=== PATIENT | female | born 1995 | race Caucasian/White ===

== ENCOUNTER 2023-06-10 14:55 | Outpatient (AMB) | payer MEDICAID, SELFPAY ==
--- NOTE | 2023-06-10 14:57 | MHC.OFFVIS ---
Intake Vital Signs 06/10/23 14:58 Height 4 ft 9.87 in Weight 147 lb 4.301 oz BMI 30.9 BP 102/78 Blood Pressure Location Rt brachial Position Sitting Pulse 94 Pulse Source Pulse Oximeter Intake Visit Reasons: PSA Intake Note: New pt presents today for consult referred by PCP Paty Bishop. Patient has been diagnosed with psoriatic arthritis a year ago and is here to establish care and discuss treatment. C/o of pain in ankles, knees, and wrists. Patient reports finger will go numb in shower and has been noticing psoriasis patches on arms and occasionally on upper thighs and flanks. Pain started approx around 7 years old. Patient stated around she was officially diagnosed. Has tried Meloxicam 7.5 mg for 3-4 months. 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 Patient states that she was diagnosed with psoriasis when she had plenty of dandruff on her scalp as well as rashes on her arms. This was a few years ago. She was diagnosed with psoriasis by her PCP. She did see a in service education teacher for acne. According to patient. Diagnosis was not confirmed by a in service education teacher and she never received any specific treatment aimed towards psoriasis. She states that since age 7 she would have multiple joint aches and pains. She was never given a diagnosis. She never had any joint arthrocentesis or any specific treatment. She stated that around age [age] she was told that there was some abnormality in her blood work and was diagnosed with psoriatic arthritis. She took meloxicam 7.5 mg daily for 3-4 months without relief. Currently patient states that she gets pain in her hands, ankles, back, neck. States that occasionally her fingers would tingle and go numb. Mentions that when her fiance squeezes her hands they hurt. She mentions that her father had psoriatic arthritis. 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 Female Reproductive History Menstrual Total pregnancies: 1 Ab induced: 1 Review of Systems Const Reports fatigue ENT Reports dizziness and Reports tinnitus GI Reports heartburn Musc Reports back pain, Reports arthralgias, Reports joint swelling, Reports stiffness and Reports tingling Skin/Breast Reports unusual bruising Neuro Reports dizziness and Reports tingling Psych Reports anxiety Endo Reports fatigue Physical Exam Vital Signs: Last Vital Signs Pulse 94 06/10/23 14:58 BP 102/78 06/10/23 14:58 BMI result Body Mass Index 30.9 Const General: cooperative, healthy appearing and comfortable Nutritional Appearance: overweight Orientation/consciousness: patient oriented x3 Limitations: no limitations HEENT Head: Yes normocephalic and Yes atraumatic Mouth: moist mucous membranes Resp Effort & Inspection: normal respiratory effort and able to speak in complete sentences Auscultation: clear to auscultation bilaterally Cardio Rate: regular rate Rhythm: regular rhythm GI Inspection: No distended Palpation (GI): Soft to palpation and nontender Skin General skin exam: no rashes or lesions noted Neuro General: patient oriented x3 Extrem Other: No active synovitis Right 5th MCP tenderness without swelling Few fibromyalgia tender points Equivocal DEVENDRA test bilaterally Curt test 10-15.5 cm Normal lateral flexion test Normal range of motion of her neck Normal nailfold capillaroscopy Tenderness upon palpation of both lateral malleoli Assessment & Plan Assessment & Plan (1) Polyarthralgia: Code(s): M25.50 - Pain in unspecified joint Plan: This is a 27-year-old female who presents for evaluation of years of diffuse joint pain. Father had psoriatic arthritis. Will order comprehensive serology to screen for underlying autoimmune rheumatic disease. Check x-rays of involved joints Plan I spent 48 minutes reviewing patient's chart, evaluating patient, ordering diagnostic workup, counseling patient and documenting in the chart Orders: Orders Complete Blood Count Auto Diff Today M25.50 - Pain in unspecified joint C Reactive Protein Today M25.50 - Pain in unspecified joint Cyclic Citrullinated Peptide Today M25.50 - Pain in unspecified joint Anti DNA DS Antibody Today M25.50 - Pain in unspecified joint Sjogren's Antibodies Today M25.50 - Pain in unspecified joint XR sacroiliac joint min 3V Today M25.50 - Pain in unspecified joint XR ankle LT min 3V Today M25.50 - Pain in unspecified joint XR lumbar spine 4V min Today M25.50 - Pain in unspecified joint Comprehensive Met. Panel Today M25.50 - Pain in unspecified joint Erythrocyte Sedimentation Rate Today M25.50 - Pain in unspecified joint Hepatitis A,B,C Profile Today Z11.59 - Encounter for screening for other viral diseases Immunofixation Pnl, Serum Today M25.50 - Pain in unspecified joint Protein Electrophoresis, Serum Today M25.50 - Pain in unspecified joint Rheumatoid Factor Today M25.50 - Pain in unspecified joint GAVINO Reflex Titer and Pattern Today M25.50 - Pain in unspecified joint Anti Extractable Nuclear Ag Today M25.50 - Pain in unspecified joint Complement C3 Today M25.50 - Pain in unspecified joint Complement C4 Today M25.50 - Pain in unspecified joint Protein Creatinine Ratio, Ur Today M25.50 - Pain in unspecified joint UA w Microscopic Today M25.50 - Pain in unspecified joint XR hand wrist LT Today M25.50 - Pain in unspecified joint XR hand wrist RT Today M25.50 - Pain in unspecified joint XR ankle RT min 3V Today M25.50 - Pain in unspecified joint XR foot LT min 3V Today M25.50 - Pain in unspecified joint XR foot RT min 3V Today M25.50 - Pain in unspecified joint XR cervical spine 4V Today M25.50 - Pain in unspecified joint Coding Level of Care Code New Pt Level 4 (74124) Diagnoses Polyarthralgia M25.50
[2023-06-10 14:58] VITALS: BP 102/78; PULSE 94; BMI 30.9
== END 2023-06-10 15:39 | disposition home or self-care (01) ==
PROVIDERS: PCP General Practice; Referring Provider General Practice; Visit Provider Student in an Organized Health Care Education/Training Program
DX: M25.50 Pain in unspecified joint (principal)
CPT/HCPCS: 99204

== ENCOUNTER → 2023-06-10 14:55 | Outpatient (BNVA) | payer MEDICAID, SELFPAY | PROVIDERS: Visit Provider Student in an Organized Health Care Education/Training Program | DX: M25.50 Pain in unspecified joint (principal) | CPT/HCPCS: 99202 ==

== ENCOUNTER 2023-06-12 15:07 | Outpatient (REF) | payer MEDICAID, SELFPAY ==
--- NOTE | ~2023-06-12 | XR_ITS ---
EXAMINATION: XR BILATERAL ANKLES XR BILATERAL FEET CLINICAL INFORMATION: Pain in unspecified joint. COMPARISON: None available. TECHNIQUE: 2 views each of bilateral ankles. 3 views each of bilateral feet. FINDINGS: Left Ankle: Alignment preserved. Mild soft tissue swelling. No displaced fracture. Left Foot: Mild degenerative changes in the first metatarsophalangeal joint with joint space narrowing and hypertrophic change. Alignment preserved. Tiny soft tissue calcification along the medial proximal aspect of the distal tuft of the great toe. Right Ankle: Tiny plantar calcaneal spur. Alignment is preserved. No displaced fracture. Right Foot: Mild degenerative changes in the first metatarsophalangeal joint with joint space narrowing and hypertrophic change. Alignment preserved. Tiny soft tissue calcification along the medial proximal aspect of the distal tuft of the great toe. XR/XR foot RT min 3V IMPRESSION: 1. Tiny right plantar calcaneal spur. 2. Mild degenerative changes in the bilateral first metatarsophalangeal joints. 3. Tiny soft tissue calcifications in the bilateral great toes. Recommend follow-up imaging in 10-14 days if fracture is suspected.
--- NOTE | ~2023-06-12 | XR_ITS ---
EXAMINATION: XR LUMBAR SPINE XR SACROILIAC JOINTS XR BILATERAL HANDS/WRISTS XR CERVICAL SPINE CLINICAL INFORMATION: Pain in joints. COMPARISON: None available. TECHNIQUE: 3 views of the cervical spine. 5 views of the lumbar spine. 3 views of the bilateral sacroiliac joints. 4 views each of the bilateral hands. FINDINGS: CERVICAL SPINE: Straightening of the normal cervical lordosis. Minimal anterolisthesis of C3 on C4. Mild multilevel cervical spondylosis. Cervical disc space heights are preserved. LUMBAR SPINE: Lumbar vertebral body heights are preserved. Mild multilevel lumbar spondylosis. Facet arthritis at L5-S1. Mild degenerative changes in the imaged lower thoracic spine. BILATERAL SACROILIAC JOINTS: Mild degenerative changes in the bilateral sacroiliac joints with hypertrophic change. RIGHT HAND: The bone mineralization is normal. Joint spaces are preserved. Alignment is maintained. LEFT HAND: Bone mineralization is normal. Alignment is preserved. Joint spaces are maintained. XR/XR cervical spine 4V IMPRESSION: 1. Mild degenerative changes in the cervical spine. 2. Mild multilevel lumbar spondylosis. 3. Mild degenerative changes in the bilateral sacroiliac joints. 4. Unremarkable bilateral hands. Recommend follow-up imaging in 10-14 days if fracture is suspected.
--- NOTE | ~2023-06-12 | XR_ITS ---
EXAMINATION: XR BILATERAL ANKLES XR BILATERAL FEET CLINICAL INFORMATION: Pain in unspecified joint. COMPARISON: None available. TECHNIQUE: 2 views each of bilateral ankles. 3 views each of bilateral feet. FINDINGS: Left Ankle: Alignment preserved. Mild soft tissue swelling. No displaced fracture. Left Foot: Mild degenerative changes in the first metatarsophalangeal joint with joint space narrowing and hypertrophic change. Alignment preserved. Tiny soft tissue calcification along the medial proximal aspect of the distal tuft of the great toe. Right Ankle: Tiny plantar calcaneal spur. Alignment is preserved. No displaced fracture. Right Foot: Mild degenerative changes in the first metatarsophalangeal joint with joint space narrowing and hypertrophic change. Alignment preserved. Tiny soft tissue calcification along the medial proximal aspect of the distal tuft of the great toe. XR/XR ankle RT min 3V IMPRESSION: 1. Tiny right plantar calcaneal spur. 2. Mild degenerative changes in the bilateral first metatarsophalangeal joints. 3. Tiny soft tissue calcifications in the bilateral great toes. Recommend follow-up imaging in 10-14 days if fracture is suspected.
--- NOTE | ~2023-06-12 | XR_ITS ---
EXAMINATION: XR LUMBAR SPINE XR SACROILIAC JOINTS XR BILATERAL HANDS/WRISTS XR CERVICAL SPINE CLINICAL INFORMATION: Pain in joints. COMPARISON: None available. TECHNIQUE: 3 views of the cervical spine. 5 views of the lumbar spine. 3 views of the bilateral sacroiliac joints. 4 views each of the bilateral hands. FINDINGS: CERVICAL SPINE: Straightening of the normal cervical lordosis. Minimal anterolisthesis of C3 on C4. Mild multilevel cervical spondylosis. Cervical disc space heights are preserved. LUMBAR SPINE: Lumbar vertebral body heights are preserved. Mild multilevel lumbar spondylosis. Facet arthritis at L5-S1. Mild degenerative changes in the imaged lower thoracic spine. BILATERAL SACROILIAC JOINTS: Mild degenerative changes in the bilateral sacroiliac joints with hypertrophic change. RIGHT HAND: The bone mineralization is normal. Joint spaces are preserved. Alignment is maintained. LEFT HAND: Bone mineralization is normal. Alignment is preserved. Joint spaces are maintained. XR/XR hand wrist RT IMPRESSION: 1. Mild degenerative changes in the cervical spine. 2. Mild multilevel lumbar spondylosis. 3. Mild degenerative changes in the bilateral sacroiliac joints. 4. Unremarkable bilateral hands. Recommend follow-up imaging in 10-14 days if fracture is suspected.
--- NOTE | ~2023-06-12 | XR_ITS ---
EXAMINATION: XR LUMBAR SPINE XR SACROILIAC JOINTS XR BILATERAL HANDS/WRISTS XR CERVICAL SPINE CLINICAL INFORMATION: Pain in joints. COMPARISON: None available. TECHNIQUE: 3 views of the cervical spine. 5 views of the lumbar spine. 3 views of the bilateral sacroiliac joints. 4 views each of the bilateral hands. FINDINGS: CERVICAL SPINE: Straightening of the normal cervical lordosis. Minimal anterolisthesis of C3 on C4. Mild multilevel cervical spondylosis. Cervical disc space heights are preserved. LUMBAR SPINE: Lumbar vertebral body heights are preserved. Mild multilevel lumbar spondylosis. Facet arthritis at L5-S1. Mild degenerative changes in the imaged lower thoracic spine. BILATERAL SACROILIAC JOINTS: Mild degenerative changes in the bilateral sacroiliac joints with hypertrophic change. RIGHT HAND: The bone mineralization is normal. Joint spaces are preserved. Alignment is maintained. LEFT HAND: Bone mineralization is normal. Alignment is preserved. Joint spaces are maintained. XR/XR hand wrist LT IMPRESSION: 1. Mild degenerative changes in the cervical spine. 2. Mild multilevel lumbar spondylosis. 3. Mild degenerative changes in the bilateral sacroiliac joints. 4. Unremarkable bilateral hands. Recommend follow-up imaging in 10-14 days if fracture is suspected.
--- NOTE | ~2023-06-12 | XR_ITS ---
EXAMINATION: XR LUMBAR SPINE XR SACROILIAC JOINTS XR BILATERAL HANDS/WRISTS XR CERVICAL SPINE CLINICAL INFORMATION: Pain in joints. COMPARISON: None available. TECHNIQUE: 3 views of the cervical spine. 5 views of the lumbar spine. 3 views of the bilateral sacroiliac joints. 4 views each of the bilateral hands. FINDINGS: CERVICAL SPINE: Straightening of the normal cervical lordosis. Minimal anterolisthesis of C3 on C4. Mild multilevel cervical spondylosis. Cervical disc space heights are preserved. LUMBAR SPINE: Lumbar vertebral body heights are preserved. Mild multilevel lumbar spondylosis. Facet arthritis at L5-S1. Mild degenerative changes in the imaged lower thoracic spine. BILATERAL SACROILIAC JOINTS: Mild degenerative changes in the bilateral sacroiliac joints with hypertrophic change. RIGHT HAND: The bone mineralization is normal. Joint spaces are preserved. Alignment is maintained. LEFT HAND: Bone mineralization is normal. Alignment is preserved. Joint spaces are maintained. XR/XR sacroiliac joint min 3V IMPRESSION: 1. Mild degenerative changes in the cervical spine. 2. Mild multilevel lumbar spondylosis. 3. Mild degenerative changes in the bilateral sacroiliac joints. 4. Unremarkable bilateral hands. Recommend follow-up imaging in 10-14 days if fracture is suspected.
--- NOTE | ~2023-06-12 | XR_ITS ---
EXAMINATION: XR BILATERAL ANKLES XR BILATERAL FEET CLINICAL INFORMATION: Pain in unspecified joint. COMPARISON: None available. TECHNIQUE: 2 views each of bilateral ankles. 3 views each of bilateral feet. FINDINGS: Left Ankle: Alignment preserved. Mild soft tissue swelling. No displaced fracture. Left Foot: Mild degenerative changes in the first metatarsophalangeal joint with joint space narrowing and hypertrophic change. Alignment preserved. Tiny soft tissue calcification along the medial proximal aspect of the distal tuft of the great toe. Right Ankle: Tiny plantar calcaneal spur. Alignment is preserved. No displaced fracture. Right Foot: Mild degenerative changes in the first metatarsophalangeal joint with joint space narrowing and hypertrophic change. Alignment preserved. Tiny soft tissue calcification along the medial proximal aspect of the distal tuft of the great toe. XR/XR foot LT min 3V IMPRESSION: 1. Tiny right plantar calcaneal spur. 2. Mild degenerative changes in the bilateral first metatarsophalangeal joints. 3. Tiny soft tissue calcifications in the bilateral great toes. Recommend follow-up imaging in 10-14 days if fracture is suspected.
--- NOTE | ~2023-06-12 | XR_ITS ---
EXAMINATION: XR BILATERAL ANKLES XR BILATERAL FEET CLINICAL INFORMATION: Pain in unspecified joint. COMPARISON: None available. TECHNIQUE: 2 views each of bilateral ankles. 3 views each of bilateral feet. FINDINGS: Left Ankle: Alignment preserved. Mild soft tissue swelling. No displaced fracture. Left Foot: Mild degenerative changes in the first metatarsophalangeal joint with joint space narrowing and hypertrophic change. Alignment preserved. Tiny soft tissue calcification along the medial proximal aspect of the distal tuft of the great toe. Right Ankle: Tiny plantar calcaneal spur. Alignment is preserved. No displaced fracture. Right Foot: Mild degenerative changes in the first metatarsophalangeal joint with joint space narrowing and hypertrophic change. Alignment preserved. Tiny soft tissue calcification along the medial proximal aspect of the distal tuft of the great toe. XR/XR ankle LT min 3V IMPRESSION: 1. Tiny right plantar calcaneal spur. 2. Mild degenerative changes in the bilateral first metatarsophalangeal joints. 3. Tiny soft tissue calcifications in the bilateral great toes. Recommend follow-up imaging in 10-14 days if fracture is suspected.
--- NOTE | ~2023-06-12 | XR_ITS ---
EXAMINATION: XR LUMBAR SPINE XR SACROILIAC JOINTS XR BILATERAL HANDS/WRISTS XR CERVICAL SPINE CLINICAL INFORMATION: Pain in joints. COMPARISON: None available. TECHNIQUE: 3 views of the cervical spine. 5 views of the lumbar spine. 3 views of the bilateral sacroiliac joints. 4 views each of the bilateral hands. FINDINGS: CERVICAL SPINE: Straightening of the normal cervical lordosis. Minimal anterolisthesis of C3 on C4. Mild multilevel cervical spondylosis. Cervical disc space heights are preserved. LUMBAR SPINE: Lumbar vertebral body heights are preserved. Mild multilevel lumbar spondylosis. Facet arthritis at L5-S1. Mild degenerative changes in the imaged lower thoracic spine. BILATERAL SACROILIAC JOINTS: Mild degenerative changes in the bilateral sacroiliac joints with hypertrophic change. RIGHT HAND: The bone mineralization is normal. Joint spaces are preserved. Alignment is maintained. LEFT HAND: Bone mineralization is normal. Alignment is preserved. Joint spaces are maintained. XR/XR lumbar spine 4V min IMPRESSION: 1. Mild degenerative changes in the cervical spine. 2. Mild multilevel lumbar spondylosis. 3. Mild degenerative changes in the bilateral sacroiliac joints. 4. Unremarkable bilateral hands. Recommend follow-up imaging in 10-14 days if fracture is suspected.
[2023-06-12 15:28] LABS: MANUAL DIFF FLAG NO
[2023-06-12 15:47] LABS: Basophils Percent Auto 0.5 % (0-2); Eosinophils Absolute Auto 0.1 X10*3/uL (0.0-0.4); Hematocrit 39.7 % (37.0-47.0); Hemoglobin 13.8 g/dl (12.0-16.0); Imm Gran Abs Auto 0.02 X10*3/uL (0.00-0.03); Imm Gran Pct Auto 0.2 % (0.0-0.4); Lymphocytes Absolute Auto 2.4 X10*3/uL (1.2-4.9); Lymphocytes Percent Auto 29.7 % (20-40); Mean Corpuscular HGB Conc 34.8 g/dl (31.0-35.0); Mean Corpuscular Hemoglobin 30.4 pg (27.0-33.0); Mean Corpuscular Volume 87.4 fL (80.0-98.0); Monocytes Absolute Auto 0.5 X10*3/uL (0.1-1.2); Monocytes Percent Auto 6.6 % (2-11); Platelet Count 281 X10*3/uL (160-400); Red Blood Count 4.54 X10*6/uL (4.20-5.50); Red Cell Distribution Width 11.5 % (11.0-16.0); White Blood Count 8.1 X10*3/uL (4.8-10.8)
[2023-06-12 16:07] LABS: Rheumatoid Factor < 13.0 IU/mL (<15.0)
[2023-06-12 16:08] LABS: Alanine Aminotransferase 16 U/L (0-31); Albumin Level 4.5 g/dL (3.5-5.0); Alkaline Phosphatase 54 U/L (39-117); Anion Gap 10 (12-20); Aspartate Amino Transferase 19 U/L (5-31); Bilirubin Total 0.4 mg/dL (0.0-1.0); Blood Urea Nitrogen 12 mg/dL (9-16); C Reactive Protein 0.14 mg/dL (< or = 0.50); Calcium 9.8 mg/dL (8.4-10.2); Carbon Dioxide 28 mmol/L (22-29); Chloride 105 mmol/L (96-108); Estimated Glomerular Filt Rate > 60; Glucose Random 81 mg/dL (60-115); Sodium 139 mmol/L (135-145); Total Protein 7.2 g/dL (6.5-8.0)
[2023-06-12 16:13] LABS: Appearance Urine Clear; Color Urine Yellow; Glucose Urine UA Negative (Negative); Leukocyte Esterase Urine Negative (Negative); Nitrite Urine Negative (Negative); Urine Blood Negative (Negative); Urine Ketones Negative (Negative); Urine Protein Negative (Neg-Trace)
[2023-06-12 16:17] LABS: Bacteria Urine 2+ (None Seen); Hyaline Casts Urine 0-2 /LPF (0-2); RBC Urine 0-2 /HPF (0-2); WBC Urine 0-5 /HPF (0-5)
[2023-06-12 16:37] LABS: Creatinine Urine 100.95 mg/dL; Total Protein Urine Random < 7 mg/dL (<12)
[2023-06-12 16:43] LABS: Erythrocyte Sedimentation Rate 5 MM/HR (0-20)
[2023-06-13 08:18] LABS: HBS Num1 0.65 mIU/mL (0-7.99); HBc Num1 0.02 S/CO (0.00-0.79); HBsAGNum1 0.48 S/CO (0.00-0.99); Hepatitis A Antibody IgM 0.19 Index (0-0.79); Hepatitis B Core Antibody Nonreactive (Nonreactive); Hepatitis B Surface Antigen Negative (Negative); ~HepC Num1 0.03 S/CO (0.00-0.79); ~Hepatitis A Antibody IgM Nonreactive (Nonreactive); ~Hepatitis B Surface Antibody NONREACTIVE (Nonreactive); ~Hepatitis C Antibody Nonreactive (Nonreactive)
[2023-06-13 12:53] LABS: Anti DNA DS Antibody <1 IU/mL; Antibody to SS-A Antigen <1.0 NEG AI (<1.0 NEG); Antibody to SS-B Antigen <1.0 NEG AI (<1.0 NEG); SM/Ribonucleoprotein Ab <1.0 NEG AI (<1.0 NEG); Smith Protein <1.0 NEG AI (<1.0 NEG)
[2023-06-13 16:18] LABS: Cyclic Citrullinated Peptide <16 UNITS
[2023-06-13 21:08] LABS: Prot Elec - Albumin 4.6 g/dL (3.8-4.8); Prot Elec - Alpha1 0.3 g/dL (0.2-0.3); Prot Elec - Alpha2 0.5 g/dL (0.5-0.9); Prot Elec - Beta 1 0.4 g/dL (0.4-0.6); Prot Elec - Beta 2 0.3 g/dL (0.2-0.5); Prot Elec - Gamma 0.9 g/dL (0.8-1.7)
[2023-06-16 12:08] LABS: Anti Nuclear Antibody Screen NEGATIVE (NEGATIVE)
[2023-06-16 12:53] LABS: Complement C3 85 mg/dL (83-193)
[2023-06-17 11:09] LABS: IgA 182 mg/dL (47-310); IgG 972 mg/dL (600-1640); IgM 105 mg/dL (50-300)
== END 2023-06-12 15:08 | disposition home or self-care (01) ==
LOC: HO.XRAY 15:07
PROVIDERS: Visit Provider Student in an Organized Health Care Education/Training Program
DX: Z11.59 Encounter for screening for other viral diseases (principal); M54.50 Low back pain, unspecified; M54.2 Cervicalgia; M25.532 Pain in left wrist; M25.531 Pain in right wrist; M79.642 Pain in left hand; M79.641 Pain in right hand; M79.672 Pain in left foot; M79.671 Pain in right foot; M25.572 Pain in left ankle and joints of left foot; M25.571 Pain in right ankle and joints of right foot
CPT/HCPCS: 36415; 72050; 72110; 72202; 73110; 73130; 73610; 73630; 80053; 81001; 82570; 82784; 84156; 84165; 85025; 85652; 86038; 86140; 86160; 86200; 86225; 86235; 86334; 86431; 86704; 86706; 86709; 86803; 87340

== ENCOUNTER 2023-07-04 07:56 | Outpatient (AMB) | payer MEDICAID, SELFPAY ==
[2023-07-04 07:59] VITALS: BP 114/70; PULSE 74; TEMP 36.3; O2SAT 98; BMI 31.5
--- NOTE | 2023-07-04 07:59 | MHC.OFFVIS ---
Intake Vital Signs 07/04/23 07:59 Height 4 ft 9.87 in Weight 149 lb 14.629 oz BMI 31.5 BP 114/70 Blood Pressure Location Rt brachial Position Sitting Pulse 74 Pulse Source Pulse Oximeter Temp 97.4 F Pulse Oximetry (%) 98 Intake Visit Reasons: Polyarthralgia Intake Note: Pt last seen 06/10/23, presents today for follow up and test results. 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 Continues to feel about the same Initial history: New pt presents today for consult referred by PCP Paty Bishop. Patient states that she was diagnosed with psoriasis when she had plenty of dandruff on her scalp as well as rashes on her arms. This was a few years ago. She was diagnosed with psoriasis by her PCP. She did see a ethnic origins teacher for acne. According to patient. Diagnosis was not confirmed by a ethnic origins teacher and she never received any specific treatment aimed towards psoriasis. She states that since age 7 she would have multiple joint aches and pains. She was never given a diagnosis. She never had any joint arthrocentesis or any specific treatment. She stated that around age 21 she was told that there was some abnormality in her blood work and was diagnosed with psoriatic arthritis. She took meloxicam 7.5 mg daily for 3-4 months without relief. Currently patient states that she gets pain in her hands, ankles, back, neck. States that occasionally her fingers would tingle and go numb. Mentions that when her fiance squeezes her hands they hurt. She mentions that her father had psoriatic arthritis. 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 Review of Systems Musc Reports back pain, Reports arthralgias, Reports joint swelling and Reports stiffness Skin/Breast Reports unusual bruising Psych Reports anxiety Physical Exam Vital Signs: Last Vital Signs Temp 97.4 F 07/04/23 07:59 Pulse 74 07/04/23 07:59 BP 114/70 07/04/23 07:59 Pulse Ox 98 07/04/23 07:59 BMI result Body Mass Index 31.5 Const General: cooperative, healthy appearing and comfortable Nutritional Appearance: overweight Limitations: no limitations HEENT Head: Yes normocephalic and Yes atraumatic Resp Effort & Inspection: normal respiratory effort and able to speak in complete sentences Extrem Other: Physical exam on 06/10/2023 No active synovitis Right 5th MCP tenderness without swelling Few fibromyalgia tender points Equivocal DEVENDRA test bilaterally Curt test 10-15.5 cm Normal lateral flexion test Normal range of motion of her neck Normal nailfold capillaroscopy Tenderness upon palpation of both lateral malleoli Assessment & Plan Assessment & Plan (1) Polyarthralgia: Code(s): M25.50 - Pain in unspecified joint Plan: This is a 27-year-old female who presents for evaluation of years of diffuse joint pain. Father had psoriatic arthritis. Upon evaluation I do not see any active synovitis. Comprehensive serology and inflammatory markers are unremarkable. She has some degenerative arthritis in her cervical and lumbar spine, SI joint x-rays did not show signs of sacroiliitis. She has unremarkable bilateral hand wrist x-rays. I do not see any evidence of an autoimmune rheumatic disease. I suggested that patient consider physical therapy for her spine arthritis. She will think about it. Follow-up as needed Plan I spent 15 minutes reviewing patient's chart, evaluating patient, counseling patient and documenting in the chart Coding Level of Care Code Est Pt Level 3 (69359) Diagnoses Polyarthralgia M25.50
== END 2023-07-04 08:33 | disposition home or self-care (01) ==
PROVIDERS: PCP General Practice; Referring Provider General Practice; Visit Provider Student in an Organized Health Care Education/Training Program
DX: M25.50 Pain in unspecified joint (principal)
CPT/HCPCS: 99213

== ENCOUNTER → 2023-07-04 07:56 | Outpatient (BNVA) | payer MEDICAID, SELFPAY | PROVIDERS: PCP General Practice; Visit Provider Student in an Organized Health Care Education/Training Program | DX: M25.50 Pain in unspecified joint (principal) | CPT/HCPCS: 99212 ==

== ENCOUNTER 2023-10-13 14:19 | Outpatient (REF) | payer MEDICAID, SELFPAY ==
[2023-10-13 17:43] LABS: MANUAL DIFF FLAG NO
[2023-10-13 18:17] LABS: Iron 111 mcg/dL (30-160); Percent Iron Saturation 34 % (15-50); Total Iron Binding Capacity 323 mcg/dL (228-428); Unsaturated Iron Binding 212 ug/dL
[2023-10-13 18:28] LABS: Basophils Percent Auto 0.5 % (0-2); Eosinophils Absolute Auto 0.1 X10*3/uL (0.0-0.4); Eosinophils Percent Auto 1.2 % (0-4); Hematocrit 42.2 % (37.0-47.0); Hemoglobin 14.2 g/dl (12.0-16.0); Imm Gran Abs Auto 0.03 X10*3/uL (0.00-0.03); Imm Gran Pct Auto 0.3 % (0.0-0.4); Lymphocytes Absolute Auto 2.4 X10*3/uL (1.2-4.9); Lymphocytes Percent Auto 27.1 % (20-40); Mean Corpuscular HGB Conc 33.6 g/dl (31.0-35.0); Mean Corpuscular Hemoglobin 30.3 pg (27.0-33.0); Mean Corpuscular Volume 90.2 fL (80.0-98.0); Mean Platelet Volume 9.3 fL (9.4-12.3); Monocytes Absolute Auto 0.6 X10*3/uL (0.1-1.2); Monocytes Percent Auto 6.5 % (2-11); Neutrophils Absolute Auto 5.7 x10*3/uL (2.0-8.3); Neutrophils Percent Auto 64.4 % (45-73); Platelet Count 303 X10*3/uL (160-400); Red Blood Count 4.68 X10*6/uL (4.20-5.50); Red Cell Distribution Width 12.6 % (11.0-16.0); White Blood Count 8.8 X10*3/uL (4.8-10.8)
[2023-10-14 05:42] LABS: HIV AB/AG Nonreactive (Nonreactive); HIV Num 1 0.06 S/CO (0.00-0.99); HIV Num 1 0.07 S/CO (0.00-0.99); ~HepC Num1 0.07 S/CO (0.00-0.79); ~HepC Num1 0.08 S/CO (0.00-0.79); ~Hepatitis C Antibody Nonreactive (Nonreactive)
[2023-10-14 06:19] LABS: CT PCR NOT DETECTED (Not Detect.); NG PCR NOT DETECTED (Not Detect.)
[2023-10-16 16:19] LABS: Rubella IgG Antibody 2.44 Index
== END 2023-10-13 14:20 | disposition home or self-care (01) ==
LOC: HO.CHCLDS 14:19
PROVIDERS: Visit Provider Family Medicine
DX: Z31.69 Encounter for other general counseling and advice on procreation (principal)
CPT/HCPCS: 0353U; 36415; 83540; 85025; 86762; 86787; 86803; 87389